=== PATIENT | female | born 1945 | race Caucasian/White ===

== ENCOUNTER 2017-04-14 07:08 | Emergency (ER) | payer OTHER ==
[2017-04-14 07:13] VITALS: TEMP 97.2
[2017-04-14] MEDS ORDERED: IPRATROPIUM/ALBUTEROL 3 ML DEYVIAL IH ONE (07:14)
--- NOTE | 2017-04-14 07:16 | EDPHY ---
H & P Time Seen by Provider: 04/14/17 07:13 HPI/ROS: Chief complaint. Chest congestion HPI. 71 year female presents with 6 day history of upper respiratory symptoms. Began with upper airway congestion and now has moved down into her chest. She has a productive cough. Slight shortness of breath especially with exertion. Her chest is sore from coughing but otherwise no chest discomfort. She does not think she has been running a fever. No abdominal pain vomiting or diarrhea. No unusual leg pain or swelling. No recent travel. No long history. ROS Constitutional. no fever/chills, no weakness Eyes. no problems with vision ENT. Congestion Cardiovascular. Sore chest Respiratory. Slight shortness of breath and productive cough Abdominal. no abdominal pain, no nausea/vomiting, no diarrhea . no problems urinating MS. no calf pain/swelling, no neck/back pain, no joint pain Skin. no rash Lymph. no swollen glands Neuro. no headache, no dizziness, no difficulty walking or with speech Past Medical/Surgical History: Denies past medical history Social History: Single, nonsmoker, no alcohol Smoking Status: Never smoked Physical Exam: General Appearance: Alert pleasant well-developed female mild distress vital signs significant for pulse oximeter of 89% saturation on room air Eyes: Pupils equal and round no pallor or injection. ENT, tympanic membranes normal. Pharynx without injection. Mucous membranes are moist Respiratory: There are no retractions. She has end expiratory rhonchi diffusely Cardiovascular: Regular rate and rhythm. Gastrointestinal: Abdomen is soft and nontender, no masses, bowel sounds normal. Neurological: Awake and alert, sensory and motor exams grossly normal. Skin: Warm and dry, no rashes. Musculoskeletal: Neck is supple nontender. Extremities symmetrical, full range of motion. Psychiatric: Patient is oriented X 3, there is no agitation. Constitutional: Initial Vital Signs Temperature (C) 36.2 C 04/14/17 07:10 Heart Rate 87 04/14/17 07:10 Respiratory Rate 16 04/14/17 07:10 Blood Pressure 124/96 H 04/14/17 07:10 O2 Sat (%) 89 L 04/14/17 07:10 O2 Delivery Mode Room Air Allergies/Adverse Reactions: No Known Allergies Allergy (Unverified 04/14/17 07:09) Home Medications: Medication Instructions Recorded Albuterol [Proventil Inhaler HFA 2 puffs IH Q4 #1 mdi 04/14/17 (*)] Azithromycin [Zithromax] 250 mg PO DAILY #6 tab 04/14/17 Medical Decision Making - Diagnostics Imaging Results: Chest x-ray interpreted by me suggestive of early left lower lobe infiltrate. Possibly some early right lower lobe infiltrate as well Procedures: DuoNeb hussainrajamey ED Course/Re-evaluation: Re-evaluation 7:45 a.m.. Patient is breathing better. Listening to her lungs again she has much better air movement and decreased rhonchi no some rales in the both lower lobes. Patient and I discussed imaging study results, treatment plan including criteria for return and importance of follow-up and further evaluation. She expresses understanding and agreement Differential Diagnosis: I considered viral syndrome, bronchitis, pneumonia - Data Points Medications Given: Discontinued Medications Albuterol/Ipratropium (Duoneb) 3 ml IH EDNOW ONE Stop: 04/14/17 07:15 Last Admin: 04/14/17 07:19 Dose: 3 ml Departure - Departure Disposition: Home, Routine, Self-Care Clinical Impression: Pneumonia Qualifiers: Pneumonia type: due to unspecified organism Laterality: left Lung location: lower lobe of lung Qualified Code(s): J18.1 - Lobar pneumonia, unspecified organism Condition: Good Instructions: Community Acquired Pneumonia (ED) Additional Instructions: Drink plenty of fluids and stay hydrated. Use the albuterol inhaler using 2 puffs every 4 hours for the next 24 hours while awake. Then decrease to using the inhaler 2 puffs every 4-6 hours for the next 2-3 days. Zithromax as antibiotic. Tylenol or ibuprofen as needed for fever. Return for worsening symptoms. Recheck in 2 days if not improving Referrals: Kristen Pelaez, DO [Doctor of Osteopathy] - 2-3 days, if not improved Stand Alone Forms: Work Excuse Prescriptions: Albuterol [Proventil Inhaler HFA (*)] 2 puffs IH Q4 #1 mdi Azithromycin [Zithromax] 250 mg PO DAILY #6 tab
[2017-04-14 08:07] VITALS: BP 114/70; PULSE 84; RESP 20; O2SAT 90
== END 2017-04-14 08:05 | disposition home or self-care (01) ==
LOC: CED 07:08
DX: J18.9 Pneumonia, unspecified organism (principal)
CPT/HCPCS: 71020-PO

== ENCOUNTER 2017-10-25 08:25 | Emergency (ER) | payer OTHER ==
[2017-10-25 08:36] VITALS: BP 130/73
--- NOTE | 2017-10-25 08:38 | EDPHY ---
H & P Time Seen by Provider: 10/25/17 08:33 HPI/ROS: CHIEF COMPLAINT: Right knee pain History by patient HISTORY OF PRESENT ILLNESS: 72-year-old woman presents complaining of right knee pain which began after standing from kneeling and maybe twisting her knee. She said that over the course the day the pain became worse and worse. She localizes it mainly to the lateral aspect of her knee. This morning she noticed some swelling. She took some ibuprofen for yesterday. She has been using a walker that she had for her prior hip replacement surgery to get around because it hurts to bear weight. She has not been on any recent antibiotics or steroids. REVIEW OF SYSTEMS: As in HPI, and all other systems reviewed and are negative Smoking Status: Never smoked Physical Exam: General Appearance: Alert and no distress. Head: Normocephalic, atraumatic Eyes: Pupils equal and round no injection. Extraocular movements are intact. Musculoskeletal: Neck is supple and nontender. Extremities: Right hip full range of motion without pain, right knee small amount of swelling, no erythema, full range of motion with some pain actively and passively, positive tenderness along right lateral joint line and patella, no ligamentous laxity appreciated, positive pain with valgus stress, DP 2+ and equal to the left, distal sensation intact, wiggles all toes. Skin: No rashes or lesions except as described above. Constitutional: Initial Vital Signs Temperature (C) 36.7 C 10/25/17 08:32 Heart Rate 78 10/25/17 08:32 Respiratory Rate 18 10/25/17 08:32 Blood Pressure 130/73 H 10/25/17 08:32 O2 Sat (%) 97 10/25/17 08:32 O2 Delivery Mode Room Air Allergies/Adverse Reactions: No Known Allergies Allergy (Unverified 10/25/17 08:31) Home Medications: Medication Instructions Recorded Meloxicam 7.5 mg PO DAILY #10 tablet 10/25/17 MDM/Departure - MDM Imaging: I viewed and interpreted images myself ED Course/Re-evaluation: 72-year-old woman presents with right knee pain after standing and twisting injury. X-ray shows no evidence of acute fracture and patient has good range of motion. I suspect lateral collateral ligament strain given her area of tenderness. Patient is given an Ehsan wrap. I am recommending weight-bearing as tolerated and nonsteroidal anti-inflammatory pain medicine. 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 - Depart Disposition: Home, Routine, Self-Care Clinical Impression: Strain of right knee Qualifiers: Encounter type: initial encounter Qualified Code(s): S86.911A - Strain of unspecified muscle(s) and tendon(s) at lower leg level, right leg, initial encounter Condition: Good Instructions: Knee Pain (ED) Additional Instructions: You were seen by Dr. Latoya Pratt today. Use Ehsan wrap for comfort, stability and swelling. Take meloxicam as needed for pain once daily. Ice your niece needed for pain and swelling. You may put as much weight on it as you can tolerate. Use your walker as needed. Follow up with her primary care physician for if your symptoms persist for more than a week to 10 days.. Return for any worsening or new concerns. Stand Alone Forms: Work Limited Duty Prescriptions: Meloxicam 7.5 mg PO DAILY #10 tablet Referrals: Kristen Pelaez, [Primary Care Provider] - As per Instructions
== END 2017-10-25 09:23 | disposition home or self-care (01) ==
LOC: CED 08:25
DX: S86.911A Strain of unspecified muscle(s) and tendon(s) at lower leg level, right leg, initial encounter (principal); X50.9XXA Other and unspecified overexertion or strenuous movements or postures, initial encounter; Y99.0 Civilian activity done for income or pay
CPT/HCPCS: 73564-PO

== ENCOUNTER → 2018-04-24 | Outpatient (CLI) | payer OTHER | LOC: BRMIMAGING 08:24 | PROVIDERS: ATTEND Family Medicine | DX: M81.0 Age-related osteoporosis without current pathological fracture (principal); Z78.0 Asymptomatic menopausal state ==

== ENCOUNTER → 2018-07-24 | Outpatient (CLI) | payer OTHER | LOC: BRMIMAGING 09:39 | PROVIDERS: ATTEND Family Medicine | DX: R92.1 Mammographic calcification found on diagnostic imaging of breast (principal) ==